=== PATIENT | female | born 1965 | race Caucasian/White ===

== ENCOUNTER 2018-10-31 03:00 | Day surgery (SDC) | payer BC ==
[2018-10-31] VITALS (7 sets, daily range): BP systolic 97–128; BP diastolic 62–93
[~2018-10-31] VITALS: Ht 170.2 cm; Wt 77.1 kg
[~2018-10-31 03:00] MED LIST: ALB6.7R INH; ASPI-1471 PO; DOC100 PO; ESC10 PO; ESCI20TA38 PO; FERR325T3 PO; GLUC100026 PO; KRIL500C2 PO; MULT-1335 PO; OMEG500C7 PO; PER PO; PHEN200T32 PO; RIVA10TA PO; SULF-198 PO; VIT1TABL PO
[2018-10-31] MEDS ORDERED: LIDOCAINE MPF 1% 5 ML VIAL ONE (08:17)
[2018-10-31] MEDS ORDERED: PROPOFOL EMUL(*) 10MG/ML 20 ML 60 ML ONE (08:17)
[2018-10-31] MEDS ORDERED: NORMOSOL R SOLN(*) 1000 ML BAG 1,000 ML IV PRN (10:20)
[2018-10-31] MEDS ORDERED: LIDOCAINE/SOD BICARB 8.4% SYR ID ONE (10:25)
== END 2018-10-31 13:10 | disposition home or self-care (01) ==
LOC: OR 03:00
PROVIDERS: ATTEND Internal Medicine Gastroenterology
DX: K21.9 Gastro-esophageal reflux disease without esophagitis (principal); R13.10 Dysphagia, unspecified; K44.9 Diaphragmatic hernia without obstruction or gangrene; K20.9 Esophagitis, unspecified; K29.70 Gastritis, unspecified, without bleeding; K31.7 Polyp of stomach and duodenum
CPT/HCPCS: 43239; 88305; 88313; 88344; J2001; J2704; C1726

== ENCOUNTER → 2019-02-18 | Outpatient (CLI) | payer BC ==
--- NOTE | 2019-02-18 15:42 | RADIOLOGY IMAGING REPORT ---
[place] [facility] [place] NAME: Marlena Mcallister : 1965 MR: [id number] V: [id number] EXAM DATE: ORDERING PHYSICIAN: RICCI HALL TECHNOLOGIST: Location: [facility] Patient: Marlena Mcallister : 1965 Visit/Account:[id number] Date of Sevice: 02/18/2019 THYROID HISTORY: Thyroid nodules COMPARISON: February 01, 2009 FINDINGS: SIZE: Normal. Right lobe: 4.5 x 1.8 x 1.5 cm Left lobe: 4.8 x 1.3 x 1.3 cm Isthmus: 2 mm PARENCHYMA: Homogeneous. NODULES: Right lobe: * In the superior pole there is a 7 x 6 x 7 mm well-circumscribed hypoechoic nodule. There is also a 6 x 4 x 4 mm well-circumscribed hypoechoic nodule in the superior pole on the right * In the inferior right lobe is a 2.2 x 1.6 x 1.3 cm slightly lobular nodule of mixed echogenicity w hich is increased in size when compared to the prior study Left lobe: * In the lateral left lobe there is a 5 mm well-circumscribed hypoechoic nodule and in the medial mi d left lobe a 5 mm partially cystic nodule Isthmus: * None discrete. VASCULARITY: Mildly decrease in the right lobe ADDITIONAL FINDINGS: None. IMPRESSION: In the inferior right lobe there is a 2.2 x 1.6 x 1.3 cm slightly lobular solid nodule which has incr eased in size from 1 x 0.9 x 1.3 cm on the prior study. Ultrasound-guided fine-needle aspiration is recommended REFERENCE: 2015 [place] [employer] Management Guidelines for Adult Patients with Thyroid Nodules and D ifferentiated Thyroid Cancer: The [place] [employer] Guidelines Task Force on Thyroid Nodul es and Differentiated Thyroid Cancer. SONOGRAPHIC PATTERNS: * Benign: Purely cystic nodules (no solid component); estimated risk of malignancy <1 percent; no bi opsy recommended. * Very Low Suspicion: Spongiform or partially cystic nodules without any of the sonographic features described in low, intermediate, or high suspicion patterns; estimated risk of malignancy <3 percent; consider FNA at > 2 cm (Observation without FNA is also a reasonable option). * Low Suspicion: Isoechoic or hyperechoic solid nodule, or partially cystic nodule with eccentric so lid areas, without microcalcification, irregular margin or ETE (extra-thyroidal extension), or taller than wide shape; estimated risk of malignancy 5-10 percent; recommend FNA at >1.5 cm. * Intermediate Suspicion: Hypoechoic solid nodule with smooth margins without microcalcifications, E TE (extra-thyroidal extension), or taller than wide shape; estimated risk of malignancy 10-20 percent ; recommend FNA at > 1 cm. * High Suspicion: Solid hypoechoic nodule or solid hypoechoic component of a partially cystic nodule with one or more of the following features: irregular margins (infiltrative, microlobulated), microc alcifications, taller than wide shape, rim calcifications with small extrusive soft tissue component, evidence of ETE (extra-thyroidal extension); estimated risk of malignancy >70-90 percent; recommend FNA at > 1 cm. NOTES: * Although a sonographically suspicious subcentimeter thyroid nodule without evidence of extrathyroi javi extension or sonographically suspicious lymph nodes may be observed with close sonographic follow -up rather than pursuing immediate FNA, patient age and preference may modify decision-making. A > 50% interval increase in nodule volume and/or development of new suspicious sonographic features are felt to be a valid reasons for potential re-aspiration of a nodule previously shown to have benig n FNA cytology. Report Dictated By: Suad Cruz MD at 02/18/2019 3:32 PM Report E-Signed By: Suad Cruz MD at 02/18/2019 3:37 PM WSN:[email or web address]
--- NOTE | 2019-02-19 08:23 | RADIOLOGY IMAGING REPORT ---
FACILITY: [facility] PATIENT NAME: MARNIE FIGUEROA : [id number] MR: [id number] V: [id number] EXAM DATE: ORDERING PHYSICIAN: RICCI HALL TECHNOLOGIST: Denise Dinero PROCEDURE:BILATERAL DIGITAL SCREENING MAMMOGRAM WITH CAD ASSISTED INTERPRETATION & 3D TOMOSYNTHESIS COMPARISON:Prior mammograms 09/05/17, 07/31/16, 12/29/14, 07/10/13, 07/04/12. INDICATIONS:screening FINDINGS: The breasts are heterogeneously dense which can obscure small masses. The parenchymal pattern has remained stable allowing for difference in mammographic technique & patient positioning. DIAGNOSTIC CATEGORY 1--NEGATIVE. RECOMMENDATIONS: ROUTINE MAMMOGRAM AND CLINICAL EVALUATION. IMPRESSION: BIRADS 1: Negative. No significant abnormality is seen. Dictated by: Suad Cruz M.D. on 02/18/2019 at 15:16 Transcribed by: TIEN on 02/18/2019 at 15:26 Approved by: Suad Cruz M.D. on 02/19/2019 at 8:22 [facility]
== END ==
LOC: MAMO 01:22
PROVIDERS: ATTEND Nurse Practitioner Family
DX: Z12.31 Encounter for screening mammogram for malignant neoplasm of breast (principal); E04.2 Nontoxic multinodular goiter
CPT/HCPCS: 76536; 77063; 77067

== ENCOUNTER → 2019-03-03 | Outpatient (CLI) | payer BC ==
[2019-03-03 11:22] LABS: INR 0.99
== END ==
LOC: LAB 10:55
PROVIDERS: ATTEND Nurse Practitioner Family
DX: Z01.812 Encounter for preprocedural laboratory examination (principal)
CPT/HCPCS: 36415; 85610

== ENCOUNTER → 2019-03-04 | Outpatient (CLI) | payer BC ==
--- NOTE | 2019-03-04 17:06 | RADIOLOGY IMAGING REPORT ---
FACILITY: [facility] - [place] PATIENT NAME: Marlena Mcallister : 1965 MR: [id number] V: [id number] EXAM DATE: [id number] ORDERING PHYSICIAN: RICCI HALL TECHNOLOGIST: Location: [facility] [place] Patient: Marlena Mcallister : 1965 Visit/Account:[id number] Date of Sevice: 03/04/2019 Exam type: US BIOPSY LOC/INJ THYROID History: Enlarging right thyroid nodule Comparison: February 18, 2019. Findings: Informed consent was obtained including potential risks and complications such as bleeding and infect ion. The patient's right side of the neck was prepped and draped usual sterile fashion. Local anesthesia was accomplished with 1% lidocaine. Under continuous direct sonographic guidance four 25-gauge FNA b iopsies were obtained through the dominant nodule in the right lobe. Samples were given to the patho logy technologist for processing. The procedure was accomplished without apparent complication. IMPRESSION: 1. Successful sonographically guided right-sided thyroid biopsy Report Dictated By: Suad Cruz MD at 03/04/2019 4:57 PM Report E-Signed By: Suad Cruz MD at 03/04/2019 5:02 PM WSN:[email or web address]
== END ==
LOC: US 01:13
PROVIDERS: ATTEND Nurse Practitioner Family
DX: E04.1 Nontoxic single thyroid nodule (principal)
CPT/HCPCS: 10005; 76942; 88104; 88172

== ENCOUNTER → 2019-04-15 | Outpatient (CLI) | payer BC ==
--- NOTE | 2019-04-15 12:10 | RADIOLOGY IMAGING REPORT ---
[place] [facility] [place] NAME: Marlena Mcallister : 1965 MR: [id number] V: [id number] EXAM DATE: ORDERING PHYSICIAN: ОЛЕГ HANEY TECHNOLOGIST: Location: [facility] [place] Patient: Marlena Mcallister : 1965 Visit/Account:[id number] Date of Sevice: 04/15/2019 Chest with lateral, 2 views. HISTORY: Former smoker, pounding in chest, occasional shortness of breath. COMPARISON: 10/07/2012, 07/21/2011. The heart and mediastinum are unremarkable. No bulky adenopathy. Pulmonary vessels are unremarkable . The lungs are clear. The pleural surfaces are unremarkable. No pneumothorax. Degenerative changes are present in the spine. Patchy sclerosis is present in the left humeral neck. This area was not inc luded on prior exams. IMPRESSION: No evidence of acute cardiopulmonary disease. Left proximal humerus lesion suggesting an old bone infarct or enchondroma. Other etiologies are less likely. Report Dictated By: Noah Weber MD at 04/15/2019 12:01 PM Report E-Signed By: Noah Weber MD at 04/15/2019 12:05 PM WSN:[id number]
== END ==
LOC: RAD 11:14
PROVIDERS: ATTEND Emergency Medicine
DX: Z87.891 Personal history of nicotine dependence (principal)
CPT/HCPCS: 71046